=== PATIENT | female | born 1945 | race Caucasian/White ===

== ENCOUNTER 2016-11-04 05:22 | Inpatient (IN) | payer MEDICARE ==
[2016-11-04] MEDS: Lactated Ringers 1,000 ML IV SCH (06:36)
[2016-11-04] MEDS ORDERED: Povidone-Iodine 10% Soln 118.25 ML Bottle ONE (06:43)
[2016-11-04] MEDS ORDERED: Gentamicin 40 MG/ML 2 ML Vial ONE (06:43)
[2016-11-04] MEDS ORDERED: Clindamycin Phosphate 900 MG in Sodium Chloride 0.9% 100 ML IV ONE (07:15)
[2016-11-04] MEDS ORDERED: Propofol 200 MG/20 ML SDV ONE ×4 (07:17→09:49)
[2016-11-04] MEDS ORDERED: Midazolam 1 MG/ML 2 ML SDV ONE ×4 (07:18→09:06)
[2016-11-04] MEDS ORDERED: fentaNYL 100 MCG/2 ML SDV ONE ×3 (07:18→09:44)
[2016-11-04] MEDS ORDERED: Ondansetron 4 MG/2 ML SDV ONE (07:52)
[2016-11-04] MEDS ORDERED: Dexamethasone 4 MG/ML SDV ONE (07:52)
[2016-11-04] MEDS ORDERED: Ropivacaine 49.25 ML, Ketorolac 30 MG, EPINEPHrine 0.5 MG, cloNIDine 80 MCG, Sodium Chl... INJECT SCH ×5 (08:00)
[2016-11-04] MEDS: Tranexamic Acid 1,000 MG in Sodium Chloride 0.9% 50 ML IV SCH ×2 (08:01→10:31)
[2016-11-04] MEDS ORDERED: Lactated Ringers 1,000 ML ONE (08:46)
[2016-11-04] MEDS ORDERED: Ketorolac 60 MG/2 ML SDV ONE (09:46)
[2016-11-04] MEDS ORDERED: traMADol 50 MG Tab PO PRN (10:13)
[2016-11-04] MEDS ORDERED: Bisacodyl 5 MG Tab PO PRN (10:13)
[2016-11-04] MEDS ORDERED: Aluminum Hydroxide/Magnesium Hydroxide/Simethicone Susp 30 ML Cup PO PRN (10:13)
[2016-11-04] MEDS ORDERED: Zolpidem 5 MG Tab PO PRN (10:13)
[2016-11-04] MEDS ORDERED: Morphine 2 MG/ML Syringe IVPUSH PRN (10:13)
[2016-11-04] MEDS ORDERED: Docusate Sodium 100 MG Cap PO PRN (10:13)
[2016-11-04] MEDS ORDERED: diphenhydrAMINE 50 MG/ML SDV IVPUSH PRN (10:13)
[2016-11-04] MEDS ORDERED: Magnesium Hydroxide 400 MG/5 ML Susp 30 ML Cup PO PRN (10:13)
[2016-11-04] MEDS ORDERED: Ondansetron 4 MG/2 ML SDV IVPUSH PRN (10:13)
[2016-11-04] MEDS ORDERED: Ketorolac 30 MG/ML SDV IVPUSH PRN (10:13)
[2016-11-04] MEDS ORDERED: Naloxone 0.4 MG/ML SDV IVPUSH PRN (10:13)
[2016-11-04] MEDS ORDERED: Sennosides 8.6 MG Tab PO PRN (10:13)
[2016-11-04] MEDS ORDERED: HYDROmorphone 1 MG/ML Syringe IM ONE (10:45)
[2016-11-04] MEDS ORDERED: HYDROmorphone 1 MG/ML Syringe IVPUSH ONE (10:45)
[2016-11-04] MEDS ORDERED: hydrOXYzine HCl 50 MG/ML SDV IM ONE (10:53)
[2016-11-04] MEDS ORDERED: fentaNYL 100 MCG/2 ML SDV IVPUSH ONE (10:53)
[2016-11-04] MEDS ORDERED: ceFAZolin 2 GM in Premix Bag 1 BAG IV SCH (11:00)
--- NOTE | 2016-11-04 11:13 | OR ---
DATE OF PROCEDURE: 11/04/2016 PREOPERATIVE DIAGNOSIS: Right knee primary osteoarthritis. POSTOPERATIVE DIAGNOSIS: Right knee primary osteoarthritis. PROCEDURE: Right knee total knee arthroplasty. NETWORK OPERATIONS MANAGER: Jessica Stevens NP. ANESTHESIA: Conscious sedation plus spinal anesthesia. FLUID: Lactated Ringer solution. ESTIMATED BLOOD LOSS: 50 mL. COMPLICATIONS: None. SPECIMEN: None. DISPOSITION: Stable to PACU. TOURNIQUET TIME: 75 minutes. INSTRUMENTATION: Niecy Persona size 8 of 5-degree cemented tibia, size 10 femur, 38 mm poly patella, and 14 mm tibial insert. INDICATIONS: The patient is well known to me. She was seen in the clinic. We performed her left total knee arthroplasty a few months ago. She did quite well from this and was very compliant in her therapy, and she had very good range of motion. The patient's extension was limited, mainly due to posterior osteophyte. She had severe tricompartmental osteoarthritis with osteophytes in all compartments and was bone on bone in the medial compartment. Preoperative imaging confirmed the above-mentioned diagnosis. Risks and benefits of the procedure were explained to the patient, and informed consent was obtained. DETAILS OF PROCEDURE: The patient was seen preoperatively by myself and the Anesthesia staff in the preop holding area where the operative site was marked. She was brought to the operative suite by the Anesthesia staff where spinal anesthesia was administered as well as conscious sedation. A well-padded tourniquet was placed on the right thigh. A sterile Koch catheter was inserted. The right lower extremity was then prepped and draped in sterile manner. Time-out was called identifying the correct patient, the correct procedure, the correct site, and antibiotics had begun with appropriate period of time. The right lower extremity was exsanguinated. Tourniquet was raised to 300 mmHg for 75 minutes and let down after cementing was complete. A midline incision was made 4 fingerbreadths proximal to the patella down to the level of the inferior portion of the tibial tubercle. A medial parapatellar arthrotomy was then made. We then removed the infrapatellar fat pad and then performed a full synovectomy. I then everted the patella and flexed the knee. We removed any osteophytes using the rongeur and then using 2 cuts with the saw made a freehand cut. This measured 38 mm. We then put the knee back in extension and drilled 3 holes for the patellar insert and then inserted the patellar insert. After this had been completed, we then flexed the knee up and then protecting soft tissues with medial and lateral sharp Homans rongeured a small area in the notch, anterior to the notch and then reamed at a point about 1.5 cm anterior to the notch entering the intramedullary canal. We then used the intramedullary guide at 5 degree valgus, we pinned our guide in place, and then made our distal cut. We then removed the guide and then I had to extend the arthrotomy proximally just slightly in order to get enough clearance for my chamfer block. I used a posterior condylar guide measuring size 10 femur. I then drilled the holes for my chamfer block. I removed the guide and then placed my chamfer block. I then protected the medial collateral ligament with a zero retractor, lateral collateral ligament with sharp Hohmann, and the anterior tissues with rongeur and then made my chamfer cuts anterior posterior and chamfer. I then removed my guide. I then used a flat osteotome and removed any remaining bone from my cuts. I did spend quite a bit of time during this procedure, removing the osteophytes, which were prominent around the medial and lateral, anterior and distal femur as well as the medial tibial plateau. I then removed the anterior and posterior cruciate ligaments as well as well as what I could remove of the medial and lateral meniscus and then anteriorized the tibia using a blunt Hohmann, and again while protecting our soft tissues with sharp Homans medially and laterally, I placed an H block. I did adjust this once as I believe that I had it and too much internal rotation after making sure that it was in line with the tibial tubercle and the 2nd metatarsal. I then pinned this in place. We then reamed the proximal tibia and then tamped it. I then inserted my femoral trial, and using the guide and a reciprocating saw, I made my block cut. After the block cut had been made, we then inserted our trial components. After I inserted a 10 mmm, a part of the component fell on the floor. We then flashed this. I then used the next base plate smaller and then went up to 13, which I believe provided good extension. After this was done, I then removed all my components, copiously irrigated with saline, and then cemented my components in place. After the components had dried, I then removed the polyethylene trial, which had been left in full extension while drying. The tourniquet was let down after the cement had hardened. At that point, our tibial insert had been flashed. I then trialed a 14 tibia, which provided excellent stability in full extension as well as mid flexion stability with full extension and full range of motion from 0-135 degrees. I then removed that tibial component. We removed any excess cement with the osteotome and Gretel's. I then cauterized the posterior capsule, especially in the lateral side. I copiously irrigated it with saline again and then inserted my final tibial insert. This provided excellent range of motion again. We then irrigated with small amount of Betadine plus regular irrigation, and then Jessica Stevens in addition to assisting with retraction and then closed with two #5 Ethibond and 0 Vicryl [id number] in a watertight manner for the parapatellar arthrotomy followed by irrigation followed by 2-0 Vicryl subcutaneous sutures, followed by 2-0 Monocryl, Dermabond, and a zip line, followed by sterile dressing. The patient was stable throughout the procedure. She did very well. She was awake at the end of the procedure from conscious sedation, and then she was taken to the PACU in stable condition. Prosper Ricks DO /[id number]
--- NOTE | 2016-11-04 11:15 | CR ---
Postop right tka. Negative for post surgical purposes.
[2016-11-04] MEDS: Acetaminophen/oxyCODONE 325-5 MG Tab PO PRN ×3 (11:48→20:27)
[2016-11-04] MEDS: ceFAZolin 2 GM in Sodium Chloride 0.9% 50 ML IV SCH ×2 (14:10→22:48)
[2016-11-04] MEDS: Ketorolac 30 MG/ML SDV IVPUSH PRN (18:17)
[2016-11-04] MEDS ORDERED: Aspirin 325 MG Tab.EC PO SCH (21:00)
[2016-11-05] MEDS: Acetaminophen/oxyCODONE 325-5 MG Tab PO PRN ×5 (03:42→20:09)
[2016-11-05] MEDS: ceFAZolin 2 GM in Sodium Chloride 0.9% 50 ML IV SCH (05:38)
[2016-11-05] MEDS ORDERED: Sodium Chloride 0.9% 500 ML IV ONE (06:12)
[2016-11-05] MEDS: Cyanocobalamin (Vitamin B12) 1,000 MCG Tab PO SCH (08:08)
[2016-11-05] MEDS: Aspirin 325 MG Tab.EC PO SCH ×2 (08:08→20:11)
[2016-11-05] MEDS: Multivitamins with Iron/Calcium/Folic Acid/Minerals Tab PO SCH ×2 (08:08→20:11)
[2016-11-05] MEDS: Hydrochlorothiazide 25 MG Tab PO SCH (08:08)
[2016-11-05] MEDS: Calcium Carbonate/Vitamin D3 1500 MG-400 Units Tab PO SCH (08:08)
[2016-11-05] MEDS: Lactated Ringers 1,000 ML IV SCH (08:11)
[2016-11-05] MEDS ORDERED: Sodium Chloride 0.9% 10 ML Syringe FLUSH PRN (09:00)
--- NOTE | 2016-11-05 15:20 | PCM.PN ---
- General Info Date of Service: 11/05/16 Admission Dx/Problem (Free Text): Sabiha is a 71 year old female who who is status post op day 1 of a right knee replacement. She is doing well. She notes that she is having some drainage. She states that otherwise she is doing well. She denies any pain at this time. Functional Status: Reports: pain controlled, tolerating diet, ambulating, incentive spirometry - Patient Data Vitals - most recent: Last Vital Signs Temp 37.1 C 11/05/16 15:03 Pulse 79 11/05/16 15:03 Resp 16 11/05/16 15:03 BP 113/71 11/05/16 15:03 Pulse Ox 94 L 11/05/16 15:03 Weight - most recent: 320 lb I&O - last 24 hours: Intake & Output 11/05/16 11/05/16 11/05/16 06:59 14:59 22:59 Intake Total 650 1725 Output Total 200 300 Balance 450 1425 Lab Results last 24 hrs: Laboratory Results - last 24 hr 11/05/16 11/05/16 Range/Units 04:30 04:30 WBC 11.9 H (4.5-11.0) K/uL RBC 4.02 (3.30-5.50) M/uL Hgb 12.1 (12.0-15.0) g/dL Hct 37.7 (36.0-48.0) % MCV 94 (80-98) fL MCH 30 (27-31) pg MCHC 32 (32-36) % Plt Count 262 (150-400) K/uL Neut % (Auto) 77 H (36-66) % Lymph % (Auto) 9 L (24-44) % Hidalgo % (Auto) 12 H (2-6) % Eos % (Auto) 1 L (2-4) % Baso % (Auto) 0 (0-1) % Sodium 139 L (140-148) mmol/L Potassium 4.3 (3.6-5.2) mmol/L Chloride 103 (100-108) mmol/L Carbon Dioxide 29 (21-32) mmol/L Anion Gap 11.3 (5.0-14.0) mmol/L BUN 22 H (7-18) mg/dL Creatinine 1.2 H (0.6-1.0) mg/dL Est Cr Clr Drug Dosing 47.36 mL/min Estimated GFR (MDRD) 44 L (>60) Glucose 106 (74-106) mg/dL Calcium 8.2 L (8.5-10.1) mg/dL Total Bilirubin 0.8 (0.2-1.0) mg/dL AST 111 H D (15-37) U/L ALT 78 D (12-78) U/L Alkaline Phosphatase 91 (46-116) U/L Total Protein 6.2 L (6.4-8.2) g/dL Albumin 2.7 L (3.4-5.0) g/dL Globulin 3.5 (2.3-3.5) g/dL Albumin/Globulin Ratio 0.8 L (1.2-2.2) Med Orders - Current: Current Medications Al Hydroxide/Mg Hydroxide (Mag-Al Plus) 30 ml PO Q4H PRN PRN Reason: Constipation Aspirin (Ecotrin) 325 mg PO BID [facility] Last Admin: 11/05/16 08:08 Dose: 325 mg Bisacodyl (Dulcolax) 10 mg PO DAILY PRN PRN Reason: Constipation Calcium Carbonate (Caltrate 600+D 1500 Mg-400 Units) 1 tab PO DAILY@0800 [facility] Last Admin: 11/05/16 08:08 Dose: 1 tab Cyanocobalamin (Vitamin B12) 500 mcg PO DAILY [facility] Last Admin: 11/05/16 08:08 Dose: 500 mcg Diazepam (Valium) 5 mg IVPUSH Q6H PRN PRN Reason: Spasms Diphenhydramine HCl (Benadryl) 25 mg IVPUSH Q4H PRN PRN Reason: Itching Docusate Sodium (Colace) 100 mg PO BID PRN PRN Reason: Constipation Hydrochlorothiazide (Hydrochlorothiazide) 25 mg PO DAILY [facility] Last Admin: 11/05/16 08:08 Dose: 25 mg Lactated Ringer's (Ringers, Lactated) 1,000 mls @ 25 mls/hr IV ASDIRECTED [facility] Last Admin: 11/05/16 08:11 Dose: 25 mls/hr Ketorolac Tromethamine (Toradol) 30 mg IVPUSH Q8H PRN PRN Reason: Pain Stop: 11/09/16 10:13 Last Admin: 11/04/16 18:17 Dose: 30 mg Magnesium Hydroxide (Milk Of Magnesia) 30 ml PO BID PRN PRN Reason: Constipation Morphine Sulfate (Morphine) 2 mg IVPUSH Q2H PRN PRN Reason: Pain Multivitamins/Minerals (Thera M Plus) 1 tab PO BID [facility] Last Admin: 11/05/16 08:08 Dose: 1 tab Ondansetron HCl (Zofran) 8 mg IVPUSH Q4H PRN PRN Reason: Nausea/Vomiting Oxycodone/Acetaminophen (Percocet 325-5 Mg) 2 tab PO Q4H PRN PRN Reason: Pain Last Admin: 11/05/16 12:18 Dose: 2 tab Senna (Senna) 8.6 mg PO BID PRN PRN Reason: Constipation Sodium Chloride (Saline Flush) 10 ml FLUSH DAILY PRN PRN Reason: LINE MAINTENCE Tramadol HCl (Ultram) 100 mg PO Q6H PRN PRN Reason: Pain Last Admin: 11/04/16 13:34 Dose: 100 mg Zolpidem Tartrate (Ambien) 5 mg PO BEDTIME PRN PRN Reason: Sleep Discontinued Medications Aspirin (Ecotrin) 325 mg PO BID [facility] Ropivacaine 49.25 ml/Ketorolac Tromethamine 30 mg/Epinephrine HCl 0.5 mg/ Clonidine HCl 80 mcg/ Sodium Chloride 48.45 ml 0 ml INJECT ASDIRECTED [facility] Stop: 11/04/16 08:01 Last Admin: 11/04/16 08:02 Dose: 2 syringe Dexamethasone (Dexamethasone) Confirm Administered Dose 4 mg .ROUTE .STK-MED ONE Stop: 11/04/16 07:53 Fentanyl (Sublimaze) Confirm Administered Dose 100 mcg .ROUTE .STK-MED ONE Stop: 11/04/16 07:19 Fentanyl (Sublimaze) Confirm Administered Dose 100 mcg .ROUTE .STK-MED ONE Stop: 11/04/16 09:12 Fentanyl (Sublimaze) Confirm Administered Dose 100 mcg .ROUTE .STK-MED ONE Stop: 11/04/16 09:45 Fentanyl (Sublimaze) 100 mcg IVPUSH ONETIME ONE Stop: 11/04/16 10:54 Last Admin: 11/04/16 11:01 Dose: 100 mcg Gentamicin Sulfate (Gentamicin) Confirm Administered Dose 320 mg .ROUTE .STK- MED ONE Stop: 11/04/16 06:44 Last Admin: 11/04/16 08:26 Dose: 320 mg Hydromorphone HCl (Dilaudid) 1 mg IM ONETIME ONE Stop: 11/04/16 10:46 Last Admin: 11/04/16 10:40 Dose: 1 mg Hydromorphone HCl (Dilaudid) 1 mg IVPUSH ONETIME ONE Stop: 11/04/16 10:46 Last Admin: 11/05/16 07:51 Dose: Not Given Hydroxyzine HCl (Vistaril) 100 mg IM ONETIME ONE Stop: 11/04/16 10:54 Last Admin: 11/04/16 11:01 Dose: 100 mg Clindamycin Phosphate 900 mg/ (Sodium Chloride) 106 mls @ 200 mls/hr IV ONETIME ONE Stop: 11/04/16 07:46 Last Admin: 11/04/16 07:17 Dose: 200 mls/hr Tranexamic Acid 1,000 mg/ (Sodium Chloride) 60 mls @ 240 mls/hr IV Q3H MELINDA Stop: 11/04/16 10:59 Last Admin: 11/04/16 10:31 Dose: 240 mls/hr Lactated Ringer's (Ringers, Lactated) Confirm Administered Dose 1,000 mls @ as directed .ROUTE .STK-MED ONE Stop: 11/04/16 08:47 Cefazolin Sodium/Dextrose 2 gm (/ Premix) 50 mls @ 100 mls/hr IV Q8H MELINDA Stop: 11/05/16 03:29 Last Admin: 11/05/16 07:57 Dose: Not Given Cefazolin Sodium 2 gm/ Sodium (Chloride) 50 mls @ 100 mls/hr IV Q8HR MELINDA Stop: 11/05/16 06:29 Last Admin: 11/05/16 05:38 Dose: 100 mls/hr Sodium Chloride (Normal Saline) 500 mls @ 500 mls/hr IV .BOLUS ONE Stop: 11/05/16 07:11 Last Admin: 11/05/16 07:16 Dose: 500 mls/hr Ketorolac Tromethamine (Toradol) Confirm Administered Dose 60 mg .ROUTE .STK- MED ONE Stop: 11/04/16 09:47 Ketorolac Tromethamine (Toradol) 30 mg IVPUSH Q8H PRN PRN Reason: Pain Stop: 11/09/16 10:13 Lidocaine HCl (Xylocaine-Mpf 1%) Confirm Administered Dose 5 ml .ROUTE .STK-MED ONE Stop: 11/04/16 07:02 Last Admin: 11/05/16 07:50 Dose: Not Given Midazolam HCl (Versed 1 Mg/Ml) Confirm Administered Dose 2 mg .ROUTE .STK-MED ONE Stop: 11/04/16 07:19 Midazolam HCl (Versed 1 Mg/Ml) Confirm Administered Dose 2 mg .ROUTE .STK-MED ONE Stop: 11/04/16 07:49 Midazolam HCl (Versed 1 Mg/Ml) Confirm Administered Dose 2 mg .ROUTE .STK-MED ONE Stop: 11/04/16 07:50 Midazolam HCl (Versed 1 Mg/Ml) Confirm Administered Dose 2 mg .ROUTE .STK-MED ONE Stop: 11/04/16 09:07 Naloxone HCl (Narcan) 0.1 mg IVPUSH ONETIME PRN PRN Reason: Oversedation Stop: 11/05/16 10:14 Ondansetron HCl (Zofran) Confirm Administered Dose 4 mg .ROUTE .STK-MED ONE Stop: 11/04/16 07:53 Povidone Iodine (Betadine 10% Soln) Confirm Administered Dose 1 ml .ROUTE .STK- MED ONE Stop: 11/04/16 06:44 Last Admin: 11/04/16 08:26 Dose: 30 ml Propofol (Diprivan 20 Ml) Confirm Administered Dose 200 mg .ROUTE .STK-MED ONE Stop: 11/04/16 07:18 Propofol (Diprivan 20 Ml) Confirm Administered Dose 400 mg .ROUTE .STK-MED ONE Stop: 11/04/16 08:27 Propofol (Diprivan 20 Ml) Confirm Administered Dose 200 mg .ROUTE .STK-MED ONE Stop: 11/04/16 09:08 Propofol (Diprivan 20 Ml) Confirm Administered Dose 200 mg .ROUTE .STK-MED ONE Stop: 11/04/16 09:50 - Exam Extremities: normal pulses, no calf tenderness Peripheral Pulses: 2+: popliteal (L), popliteal (R), dorsalis pedis (L), dorsalis pedis (R) Skin: warm, dry, intact Wound/Incisions: healing well, drainage - Problem List & Annotations (1) Status post total right knee replacement SNOMED Code(s): 9128734752967 Code(s): Z96.651 - PRESENCE OF RIGHT ARTIFICIAL KNEE JOINT Status: Acute Current Visit: Yes - Problem List Review Problem List Initiated/Reviewed/Updated: Yes - My Orders Last 24 Hours: My Active Orders 11/05/16 08:00 Calcium Carbonate/Vitamin D3 [Caltrate 600+D 1500 MG-400 Units] 1 tab PO DAILY @0800 11/05/16 09:00 Aspirin [Ecotrin] 325 mg PO BID Cyanocobalamin (Vitamin B12) [Vitamin B12] 500 mcg PO DAILY Hydrochlorothiazide 25 mg PO DAILY Multivitamins w-Iron/Ca/FA/Min [Thera M Plus] 1 tab PO BID Sodium Chloride 0.9% [Saline Flush] 10 ml FLUSH DAILY PRN 11/06/16 05:15 CBC WITH AUTO DIFF [HEME] DAILY COMPREHENSIVE METABOLIC PN,CMP [CHEM] DAILY 11/07/16 05:15 CBC WITH AUTO DIFF [HEME] DAILY COMPREHENSIVE METABOLIC PN,CMP [CHEM] DAILY 11/08/16 05:15 CBC WITH AUTO DIFF [HEME] DAILY COMPREHENSIVE METABOLIC PN,CMP [CHEM] DAILY - Plan Plan:: We were notified earlier that the patient had had low output. We have given her a 500 mL bolus. She is at 300 mL output since then. It will saline lock her IV at this time. I will also DC her Koch continue strict I and O. At this time Sabiha is doing well. Powder continue with PT OT and pain management at this time. Will plan on possibly discharging her tomorrow if her drainage is under control. On her to continue to ambulate 3 times a day. On her medications to be changed or only. We will reassess in the morning so she is doing for her discharge. She was admitted with spinal notify me of any changes.
[2016-11-06] MEDS: Acetaminophen/oxyCODONE 325-5 MG Tab PO PRN ×3 (00:33→12:08)
[2016-11-06] MEDS: Ketorolac 30 MG/ML SDV IVPUSH PRN (00:36)
[2016-11-06 07:17] VITALS: BP 131/71
[2016-11-06] MEDS: Calcium Carbonate/Vitamin D3 1500 MG-400 Units Tab PO SCH (08:50)
[2016-11-06] MEDS: Cyanocobalamin (Vitamin B12) 1,000 MCG Tab PO SCH (08:50)
[2016-11-06] MEDS: Hydrochlorothiazide 25 MG Tab PO SCH (08:50)
[2016-11-06] MEDS: Aspirin 325 MG Tab.EC PO SCH (08:50)
[2016-11-06] MEDS: Multivitamins with Iron/Calcium/Folic Acid/Minerals Tab PO SCH (08:50)
--- NOTE | 2016-11-06 09:03 | PCM.DCSUM1 ---
Discharge Summary - Discharge Data Discharge Date: 11/06/16 Discharge Disposition: Home, Self-Care 01 Condition: Good - Discharge Diagnosis/Problem(s) (1) Status post total right knee replacement SNOMED Code(s): 4514359684281 ICD Code: Z96.651 - PRESENCE OF RIGHT ARTIFICIAL KNEE JOINT Status: Acute Current Visit: Yes - Patient Summary/Data Consults: Consultations 11/04/16 10:13 OT Evaluation and Treatment [CONS] Routine Please Evaluate and Treat. OT Reason for Consult: Strengthening This query below is only for informational purposes and is not editable. PT Evaluation and Treatment [CONS] Routine Please Evaluate and Treat. PT Reason for Consult: Strengthening This query below is only for informational purposes and is not editable. - Patient Instructions Diet: Usual Diet as Tolerated Activity: Apply Ice, As Tolerated, Elevate Extremity Driving: May Drive Today Showering/Bathing: May Shower Wound/Incision Care: Keep Operative Site/Wound Site Clean and Dry, Change Dressing Daily Notify Provider of: Fever, Increased Pain, Swelling and Redness - Discharge Plan Prescriptions/Med Rec: Aspirin [Ecotrin] 325 mg PO BID #60 tab.ec Docusate Sodium [Colace] 100 mg PO BID PRN #30 cap PRN Reason: Constipation traMADol [Ultram] 100 mg PO Q6H PRN #60 tablet PRN Reason: Pain Home Medications: Home Meds Multivitamin [Multi-Vitamin Daily] 1 each PO BID 09/28/13 [History] Hydrochlorothiazide 25 mg PO DAILY #10 tab 02/24/14 [Rx] Cyanocobalamin (Vitamin B12) [Vitamin B12] 500 mcg PO DAILY 04/18/16 [History] Calcium Carbonate/Vitamin D3 [Calcium 600 + Vit D 400 Softgl] 1 tab PO DAILY 12/02 [History] Aspirin [Ecotrin] 325 mg PO BID #60 tab.ec 11/06/16 [Rx] Docusate Sodium [Colace] 100 mg PO BID PRN #30 cap 11/06/16 [Rx] traMADol [Ultram] 100 mg PO Q6H PRN #60 tablet 11/06/16 [Rx] Referrals: Jessica Stevens NP [Nurse Practitioner] - (She will need a follow up appointment in 2 weeks. ) Jerman Rivas MD [Primary Care Provider] - (I want her to follow up with Dr. Rivas in 1 week to recheck her BUN and cre. ) - Discharge Summary/Plan Comment DC Time >30 min.: No Discharge Summary/Plan Comment: Sabiha is a 71 year old female who is POD 2 of a right total knee replacement. She is doing well. She is ambulating with a walker. She is tolerating her diet and pain is controlled with oral pain medication. She has minimal drainage at this time. LOWER EXTREMITY Musculoskeletal Physical Examination Constitutional: Vital signs including height and weight were reviewed and documented on the patient's chart. General appearance demonstrates normal development and body habitus. HEENT: Normocephalic, atraumatic. Neurological: The patient is alert and oriented to person, place, and time. Mood and affect are appropriate. Gait and station are normal. Intact sensation is noted. Deep tendon reflexes are equal. Clonus negative. [place]' s negative. Coordination and balance are normal. Right lower extremity: Inspection/palpation: Normal symmetry and appearance without tenderness. Stability: Stable through slight range of motion. Strength : Normal muscle strength and tone. Skin: Normal skin tone without rashes or lesions. Dressing is clean, dry, and intact. Left lower extremity: Inspection/palpation: Normal symmetry and appearance without tenderness. Range of motion: Full range of motion without pain. Stability: Stable through range of motion. Strength: Normal muscle strength and tone. Skin: Normal skin tone without rashes or lesions. Plan: She will be discharged today. She is to follow up in 2 weeks with myself. I want her to follow up with Dr. Rivas in 1 week for a recheck of her kidney function. She is to follow up with PT upon discharge. I am sending her home with jaci moss asa. - Patient Data Vitals - Most Recent: Last Vital Signs Temp 36.6 C 11/06/16 07:00 Pulse 85 11/06/16 07:00 Resp 16 11/06/16 07:00 BP 131/71 11/06/16 07:00 Pulse Ox 97 11/06/16 07:00 Weight - Most Recent: 320 lb I&O - Last 24 hours: Intake & Output 11/05/16 11/06/16 11/06/16 22:59 06:59 14:59 Intake Total 1840 Output Total 275 400 400 Balance 1565 -400 -400 Lab Results - Last 24 hrs: Laboratory Results - last 24 hr 11/06/16 11/06/16 Range/Units 05:15 05:15 WBC 7.4 (4.5-11.0) K/uL RBC 3.65 (3.30-5.50) M/uL Hgb 11.0 L (12.0-15.0) g/dL Hct 33.9 L (36.0-48.0) % MCV 93 (80-98) fL MCH 30 (27-31) pg MCHC 32 (32-36) % Plt Count 242 (150-400) K/uL Neut % (Auto) 58 (36-66) % Lymph % (Auto) 20 L (24-44) % [place] % (Auto) 17 H (2-6) % Eos % (Auto) 5 H (2-4) % Baso % (Auto) 1 (0-1) % Sodium 137 L (140-148) mmol/L Potassium 3.8 (3.6-5.2) mmol/L Chloride 103 (100-108) mmol/L Carbon Dioxide 28 (21-32) mmol/L Anion Gap 9.8 (5.0-14.0) mmol/L BUN 24 H (7-18) mg/dL Creatinine 1.2 H (0.6-1.0) mg/dL Est Cr Clr Drug Dosing 47.36 mL/min Estimated GFR (MDRD) 44 L (>60) Glucose 103 (74-106) mg/dL Calcium 8.0 L (8.5-10.1) mg/dL Total Bilirubin 0.6 (0.2-1.0) mg/dL AST 89 H (15-37) U/L ALT 78 (12-78) U/L Alkaline Phosphatase 96 (46-116) U/L Total Protein 5.9 L (6.4-8.2) g/dL Albumin 2.5 L (3.4-5.0) g/dL Globulin 3.4 (2.3-3.5) g/dL Albumin/Globulin Ratio 0.7 L (1.2-2.2) Med Orders - Current: Current Medications Al Hydroxide/Mg Hydroxide (Mag-Al Plus) 30 ml PO Q4H PRN PRN Reason: Constipation Aspirin (Ecotrin) 325 mg PO BID MELINDA Last Admin: 11/06/16 08:50 Dose: 325 mg Bisacodyl (Dulcolax) 10 mg PO DAILY PRN PRN Reason: Constipation Calcium Carbonate (Caltrate 600+D 1500 Mg-400 Units) 1 tab PO DAILY@0800 [facility] Last Admin: 11/06/16 08:50 Dose: 1 tab Cyanocobalamin (Vitamin B12) 500 mcg PO DAILY [facility] Last Admin: 11/06/16 08:50 Dose: 500 mcg Diazepam (Valium) 5 mg IVPUSH Q6H PRN PRN Reason: Spasms Diphenhydramine HCl (Benadryl) 25 mg IVPUSH Q4H PRN PRN Reason: Itching Docusate Sodium (Colace) 100 mg PO BID PRN PRN Reason: Constipation Hydrochlorothiazide (Hydrochlorothiazide) 25 mg PO DAILY [facility] Last Admin: 11/06/16 08:50 Dose: 25 mg Lactated Ringer's (Ringers, Lactated) 1,000 mls @ 25 mls/hr IV ASDIRECTED [facility] Last Admin: 11/05/16 08:11 Dose: 25 mls/hr Ketorolac Tromethamine (Toradol) 30 mg IVPUSH Q8H PRN PRN Reason: Pain Stop: 11/09/16 10:13 Last Admin: 11/06/16 00:36 Dose: 30 mg Magnesium Hydroxide (Milk Of Magnesia) 30 ml PO BID PRN PRN Reason: Constipation Morphine Sulfate (Morphine) 2 mg IVPUSH Q2H PRN PRN Reason: Pain Multivitamins/Minerals (Thera M Plus) 1 tab PO BID [facility] Last Admin: 11/06/16 08:50 Dose: 1 tab Ondansetron HCl (Zofran) 8 mg IVPUSH Q4H PRN PRN Reason: Nausea/Vomiting Oxycodone/Acetaminophen (Percocet 325-5 Mg) 2 tab PO Q4H PRN PRN Reason: Pain Last Admin: 11/06/16 07:31 Dose: 2 tab Senna (Senna) 8.6 mg PO BID PRN PRN Reason: Constipation Sodium Chloride (Saline Flush) 10 ml FLUSH DAILY PRN PRN Reason: LINE MAINTENCE Tramadol HCl (Ultram) 100 mg PO Q6H PRN PRN Reason: Pain Last Admin: 11/04/16 13:34 Dose: 100 mg Zolpidem Tartrate (Ambien) 5 mg PO BEDTIME PRN PRN Reason: Sleep Discontinued Medications Aspirin (Ecotrin) 325 mg PO BID [facility] Ropivacaine 49.25 ml/Ketorolac Tromethamine 30 mg/Epinephrine HCl 0.5 mg/ Clonidine HCl 80 mcg/ Sodium Chloride 48.45 ml 0 ml INJECT ASDIRECTED [facility] Stop: 11/04/16 08:01 Last Admin: 11/04/16 08:02 Dose: 2 syringe Dexamethasone (Dexamethasone) Confirm Administered Dose 4 mg .ROUTE .STK-MED ONE Stop: 11/04/16 07:53 Fentanyl (Sublimaze) Confirm Administered Dose 100 mcg .ROUTE .STK-MED ONE Stop: 11/04/16 07:19 Fentanyl (Sublimaze) Confirm Administered Dose 100 mcg .ROUTE .STK-MED ONE Stop: 11/04/16 09:12 Fentanyl (Sublimaze) Confirm Administered Dose 100 mcg .ROUTE .STK-MED ONE Stop: 11/04/16 09:45 Fentanyl (Sublimaze) 100 mcg IVPUSH ONETIME ONE Stop: 11/04/16 10:54 Last Admin: 11/04/16 11:01 Dose: 100 mcg Gentamicin Sulfate (Gentamicin) Confirm Administered Dose 320 mg .ROUTE .STK- MED ONE Stop: 11/04/16 06:44 Last Admin: 11/04/16 08:26 Dose: 320 mg Hydromorphone HCl (Dilaudid) 1 mg IM ONETIME ONE Stop: 11/04/16 10:46 Last Admin: 11/04/16 10:40 Dose: 1 mg Hydromorphone HCl (Dilaudid) 1 mg IVPUSH ONETIME ONE Stop: 11/04/16 10:46 Last Admin: 11/05/16 07:51 Dose: Not Given Hydroxyzine HCl (Vistaril) 100 mg IM ONETIME ONE Stop: 11/04/16 10:54 Last Admin: 11/04/16 11:01 Dose: 100 mg Clindamycin Phosphate 900 mg/ (Sodium Chloride) 106 mls @ 200 mls/hr IV ONETIME ONE Stop: 11/04/16 07:46 Last Admin: 11/04/16 07:17 Dose: 200 mls/hr Tranexamic Acid 1,000 mg/ (Sodium Chloride) 60 mls @ 240 mls/hr IV Q3H [facility] Stop: 11/04/16 10:59 Last Admin: 11/04/16 10:31 Dose: 240 mls/hr Lactated Ringer's (Ringers, Lactated) Confirm Administered Dose 1,000 mls @ as directed .ROUTE .STK-MED ONE Stop: 11/04/16 08:47 Cefazolin Sodium/Dextrose 2 gm (/ Premix) 50 mls @ 100 mls/hr IV Q8H [facility] Stop: 11/05/16 03:29 Last Admin: 11/05/16 07:57 Dose: Not Given Cefazolin Sodium 2 gm/ Sodium (Chloride) 50 mls @ 100 mls/hr IV Q8HR [facility] Stop: 11/05/16 06:29 Last Admin: 11/05/16 05:38 Dose: 100 mls/hr Sodium Chloride (Normal Saline) 500 mls @ 500 mls/hr IV .BOLUS ONE Stop: 11/05/16 07:11 Last Admin: 11/05/16 07:16 Dose: 500 mls/hr Ketorolac Tromethamine (Toradol) Confirm Administered Dose 60 mg .ROUTE .STK- MED ONE Stop: 11/04/16 09:47 Ketorolac Tromethamine (Toradol) 30 mg IVPUSH Q8H PRN PRN Reason: Pain Stop: 11/09/16 10:13 Lidocaine HCl (Xylocaine-Mpf 1%) Confirm Administered Dose 5 ml .ROUTE .STK-MED ONE Stop: 11/04/16 07:02 Last Admin: 11/05/16 07:50 Dose: Not Given Midazolam HCl (Versed 1 Mg/Ml) Confirm Administered Dose 2 mg .ROUTE .STK-MED ONE Stop: 11/04/16 07:19 Midazolam HCl (Versed 1 Mg/Ml) Confirm Administered Dose 2 mg .ROUTE .STK-MED ONE Stop: 11/04/16 07:49 Midazolam HCl (Versed 1 Mg/Ml) Confirm Administered Dose 2 mg .ROUTE .STK-MED ONE Stop: 11/04/16 07:50 Midazolam HCl (Versed 1 Mg/Ml) Confirm Administered Dose 2 mg .ROUTE .STK-MED ONE Stop: 11/04/16 09:07 Naloxone HCl (Narcan) 0.1 mg IVPUSH ONETIME PRN PRN Reason: Oversedation Stop: 11/05/16 10:14 Ondansetron HCl (Zofran) Confirm Administered Dose 4 mg .ROUTE .STK-MED ONE Stop: 11/04/16 07:53 Povidone Iodine (Betadine 10% Soln) Confirm Administered Dose 1 ml .ROUTE .STK- MED ONE Stop: 11/04/16 06:44 Last Admin: 11/04/16 08:26 Dose: 30 ml Propofol (Diprivan 20 Ml) Confirm Administered Dose 200 mg .ROUTE .STK-MED ONE Stop: 11/04/16 07:18 Propofol (Diprivan 20 Ml) Confirm Administered Dose 400 mg .ROUTE .STK-MED ONE Stop: 11/04/16 08:27 Propofol (Diprivan 20 Ml) Confirm Administered Dose 200 mg .ROUTE .STK-MED ONE Stop: 11/04/16 09:08 Propofol (Diprivan 20 Ml) Confirm Administered Dose 200 mg .ROUTE .STK-MED ONE Stop: 11/04/16 09:50 *Q Meaningful Use (DIS) - VTE *Q VTE Criteria *Q: - Stroke *Q Stroke Criteria *Q: - AMI *Q AMI Criteria *Q:
== END 2016-11-06 14:55 | disposition home or self-care (01) | DRG 470 ==
LOC: JP.SDS 05:22 → JP.MS 05:22 → EDSTATUS 07:30 → JP.MS 11:30
PROVIDERS: ADMIT Orthopaedic Surgery; ATTEND Orthopaedic Surgery
PROC: 0SRC0J9 Replacement of Right Knee Joint with Synthetic Substitute, Cemented, Open Approach (ICD-10-PCS; principal; 2016-11-04)
DX: M17.11 Unilateral primary osteoarthritis, right knee (principal); Z68.42 Body mass index [BMI] 45.0-49.9, adult; G47.33 Obstructive sleep apnea (adult) (pediatric); E66.01 Morbid (severe) obesity due to excess calories; N39.3 Stress incontinence (female) (male); Z96.652 Presence of left artificial knee joint; Z79.82 Long term (current) use of aspirin
CPT/HCPCS: 36415; 73560-26-RT; 73560-RT; 80053; 85025; 86850; 86900; 86901; 94762; 97110-GP; 97162-GP; 97165-GO; 97530-GP; 97535-GP; A9270-GY; C1713; C1776; J0690; J1100; J1170; J1580; J1885; J2250; J2405; J2704; J2795; J3010; J3410; J7030; J7040; J7050; J7120; S0077

== ENCOUNTER 2017-01-05 10:45 | Inpatient (IN) | payer MEDICARE ==
[2017-01-05] MEDS ORDERED: fentaNYL 250 MCG/5 ML SDV ONE ×2 (11:26→14:45)
[2017-01-05] MEDS ORDERED: Rocuronium 50 MG/5 ML Vial ONE ×2 (11:29→15:10)
[2017-01-05] MEDS ORDERED: Propofol 200 MG/20 ML SDV ONE (11:29)
[2017-01-05] MEDS ORDERED: Neostigmine Methylsulfate 1 MG/ML 5 ML Syringe ONE (11:29)
[2017-01-05] MEDS ORDERED: Succinylcholine/Normal Saline 200 MG/10 ML Syringe ONE (11:29)
[2017-01-05] MEDS ORDERED: Dextrose 5%-Lactated Ringers 1,000 ML IV SCH ×2 (12:00→17:15)
[2017-01-05] MEDS ORDERED: HYDROmorphone/Normal Saline 15 MG/30 ML PCA IV PRN (12:33)
[2017-01-05] MEDS ORDERED: Naloxone 0.4 MG/ML SDV IVPUSH PRN (12:33)
[2017-01-05] MEDS: cefOXitin 2 GM in Sodium Chloride 0.9% 50 ML IV ONE ×2 (13:33→17:17)
[2017-01-05] MEDS: Bupivacaine 0.5%/EPINEPHrine 1:200,000 50 ML MDV ONE ×2 (14:45→15:15)
[2017-01-05] MEDS ORDERED: Dexamethasone 4 MG/ML SDV ONE (15:11)
[2017-01-05] MEDS ORDERED: Ondansetron 4 MG/2 ML SDV ONE (15:11)
[2017-01-05] MEDS ORDERED: Ondansetron 4 MG/2 ML SDV IVPUSH PRN (17:13)
[2017-01-06] MEDS: Acetaminophen/HYDROcodone 325-5 MG Tab PO PRN ×2 (02:57→07:40)
[2017-01-06 08:25] VITALS: BP 144/86
[2017-01-06] MEDS ORDERED: Hydrochlorothiazide 25 MG Tab PO SCH (09:00)
[2017-01-06] MEDS ORDERED: Aspirin 81 MG Tab.EC PO SCH (09:00)
--- NOTE | 2017-01-07 08:33 | DISCH ---
FINAL DIAGNOSIS: Peritoneal carcinomatosis with unknown primary. SECONDARY DIAGNOSES: 1. History of obesity. 2. History of tubulovillous adenoma of colon. 3. Obstructive sleep apnea. 4. Osteoarthritis. OPERATIVE PROCEDURE: This was done on 01/05/2017; diagnostic laparoscopy with: 1. Collection of peritoneal fluid for cytology. 2. Biopsies of sigmoid colon appendix epiploica. 3. Biopsies of a portion of omentum. 4. Biopsies of peritoneum and left-sided pelvic inlet. HOSPITAL COURSE: This is a 71-year-old female presenting with somewhat nebulous abdominal pain. A CT was obtained late last week which showed some mesenteric lymphadenopathy as well as some thickening of the omentum. There is no obvious primary site identified on the CT scan. The patient underwent diagnostic laparoscopy. The patient did confirm peritoneal carcinomatosis with caking of the omentum as well as the implants in the area such as appendix epiploica as well as the peritoneum. The carcinomatosis primarily within the infracolic abdomen and pelvis, and again no primary site could be seen. The right ovary could be identified. The left ovary was covered by the adhesions related to the colon and probably some fixation of tumor within the pelvis. The patient had a CEA, CA 19-9, CA 125 ordered and those are pending. The plan at this point will be to discharge the patient home. She will be following up with Elciia Boyd next week. The plan will be to have the tumor workup to see if we can give her some insight in terms of the primary site and then proceed with further workup from that point forward. She will be scheduled to see in addition to Elicia next Thursday and to see Italia Kahn PA-C of Medical Oncology [facility] on 01/14/2017. Hopefully, this ends up being a peritoneal carcinomatosis related to gynecologic disease or primary peritoneal carcinoma, which would be amenable to a debulking procedure, otherwise were probably looking at strictly using chemotherapy. These findings were reviewed with the patient and she seems to understand the game plan. The patient will be sent on home medications as usual along with Kendrick 5/325 one to two tabs q.4 hours p.r.n. pain, #40.
--- NOTE | 2017-01-07 13:50 | OR ---
DATE OF PROCEDURE: 01/05/2017 PREOPERATIVE DIAGNOSIS: Mesenteric lymphadenopathy and omental implants suggestive of intraabdominal malignancy. POSTOPERATIVE DIAGNOSIS: Peritoneal carcinomatosis with unknown primary. OPERATIVE PROCEDURES: 1. Diagnostic laparoscopy with:. a. Collection of washings of pelvic peritoneal fluid for cytology (26514). 2. Biopsies of:. a. Sigmoid colon, appendix epiploica. b. Biopsies of portion of omentum. c. Biopsies of peritoneum at left side of pelvic inlet (14016). ANESTHESIA: General. MILK ROUTE SUPERVISOR: Elicia Boyd PA-C and JORGE Woods. INDICATION FOR PROCEDURE: This is a 71-year-old, originally presenting with some increasing abdominal discomfort. A CT scan was obtained per Dr. Rivas, which showed some mesenteric lymphadenopathy along with a picture suggestive of omental caking by the tumor. No obvious primary site was seen. Specifically, there is nothing evident in the GI tract at pancreas, and nothing enlarged or abnormal within the pelvis. The plan is to proceed with a diagnostic laparoscopy, laparotomy if necessary with biopsies and resections as indicated. Potential risks including bleeding, infection, injury to the underlying viscera, possible misdiagnosis, and such were reviewed along with remote possibility of cardiopulmonary, supra hemorrhagic complications leading to were discussed, and the patient wishes to proceed. DETAILS OF PROCEDURE: The patient was taken to the operating room and after general endotracheal anesthesia was induced, was placed in a lithotomy position. Koch catheter was inserted and the abdomen prepped and draped. In the left lower quadrant, a transverse incision was made. The peritoneal cavity entered under direct vision with an Optiview trocar between 15 mmHg pressure of CO2. Laparoscope was then reinserted. No underlying trocar insertion site injuries were seen. Following this sequentially, two additional trocars were placed on the left side of the abdomen. Findings included quite extensive adhesions between the small and large bowel and omentum and the anterior abdominal wall and the previous midline incisional areas. This limited exposure of the abdomen. However, there was obvious peritoneal carcinomatosis; this was very minimal above the transverse colon but below the transverse colon was quite extensive. There was a large amount of omental caking present as well as involvement of structures such as appendix epiploica, the sigmoid colon, and the peritoneal sidewall, particularly on the left side of the pelvic inlet. The upper abdomen to the extent examined, showed no evidence of liver metastases. The esophagogastric junction was not able to be visualized, there was some degree of hiatal hernia, appeared to be somewhat fixed to that area, but the visualized remainder of the stomach was unremarkable. The small bowel was able to be limited to an extent due to the extensive adhesions, which were felt not to be appropriate to be taken down in the setting, roughly half of the colon could be examined, and there were no obvious malignancies seen, although the colon proximal to the mid transverse colon, the area of the splenic flexure, and a portion of the descending colon and then the lower portions of rectum were not examined. The mesenteric lymph nodes were minimally visible due to the small bowel adhesions. The right ovary could be visualized and that appeared to be normal. The left ovary appeared to be encased by some adhesions underlying the sigmoid colon and could not be visualized. There was some small amount of pelvic peritoneal fluid present. This was evacuated, sent for cytologic evaluation. At that point what appeared to be very adequate biopsies for workup were obtained using Harmonic scalpel. Some tumor involving the appendix epiploica and the sigmoid colon was removed. Following this, a large portion of the omentum with caking was also removed, and then finally a strip of peritoneum, the left side of the pelvic inlet containing peritoneal nodules were removed as well. These were all brought out through a specimen containers in the middle of the three trocars, this being noted in the event that at some point, it is felt that the trocar sites should be reexcised. At this point, no further problems were noted. It was felt at this point rather than proceed with a more formal open exploration, it would be best to have this tumor worked up to help identify the primary site. Hopefully this would end up being suggestive of gynecologic malignancy in which case a debulking procedure would be appropriate and at least for a period of time ficacous. However if a nongynecologic malignancy is identified, this probably would not be the case appropriate to proceed with a full laparotomy unless specific complications such as the GI tract obstruction occurs. The patient was taken to the recovery room in satisfactory condition. Physician graduate research assistant, Elicia Boyd, played an essential role in assisting in this case, helping to position the patient, retracting structures as needed, as well as cutting sutures and suturing when indicated. Her presence improved patient safety and decreased operative time. Jorgito Ricks MD /[id number]
== END 2017-01-06 09:40 | disposition home or self-care (01) | DRG 357 ==
LOC: EDSTATUS 10:45 → JP.SDS 11:20 → JP.SDSSCHI 11:20 → UNDOADMIN 15:45 → JP.MS 15:45
PROVIDERS: ADMIT Surgery; ATTEND Surgery
PROC: 0W9G4ZX Drainage of Peritoneal Cavity, Percutaneous Endoscopic Approach, Diagnostic (ICD-10-PCS; principal; 2017-01-05)
PROC: 0DBN4ZX Excision of Sigmoid Colon, Percutaneous Endoscopic Approach, Diagnostic (ICD-10-PCS; 2017-01-05)
PROC: 0DBT4ZX (ICD-10-PCS; 2017-01-05)
PROC: 0DBW4ZX Excision of Peritoneum, Percutaneous Endoscopic Approach, Diagnostic (ICD-10-PCS; 2017-01-05)
DX: C78.6 Secondary malignant neoplasm of retroperitoneum and peritoneum (principal); C78.5 Secondary malignant neoplasm of large intestine and rectum; Z68.42 Body mass index [BMI] 45.0-49.9, adult; E66.01 Morbid (severe) obesity due to excess calories; Z96.652 Presence of left artificial knee joint; Z79.82 Long term (current) use of aspirin; G47.33 Obstructive sleep apnea (adult) (pediatric); R59.1 Generalized enlarged lymph nodes
CPT/HCPCS: 36415; 82378; 83735; 84100; 86301; 86304; 88112; 88305; 88341; 88342; 88360; 94762; A9270-GY; J0694; J1100; J1170; J2405; J2704; J3010; J7042; J7050

== ENCOUNTER → 2017-07-31 | Day surgery (SDC) | payer MEDICARE ==
[~2017-07-31] MED LIST: Midazolam 1 MG/ML 2 ML SDV ONE; Propofol 200 MG/20 ML SDV ONE; Sodium Chloride 0.9% 1,000 ML IV SCH; fentaNYL 100 MCG/2 ML SDV ONE
[2017-07-31 09:33] VITALS: BP 173/96
--- NOTE | 2017-08-03 08:14 | OR ---
DATE OF PROCEDURE: 07/31/2017 PROCEDURE: Colonoscopy. FINDINGS: Normal colonoscopy (no masses, polyps, or bleeding abnormality, anastomosis shows no abnormality). COMPLICATIONS: None. JEWEL BEARING BROACHER: None. PREOPERATIVE DIAGNOSIS: history of colon resection, concern for malignancy POSTOPERATIVE DIAGNOSIS: history of colon resection, concern for malignancy RISKS: Risks, benefits, alternatives, and limitations including, but not limited to infection, bleeding, and perforation were explained to the patient, who wished to proceed. PROCEDURE IN DETAIL: The patient was placed in left lateral decubitus position. The digital rectal exam was performed without abnormality. The scope was introduced and was advanced atraumatically to the small bowel anastomosis. There was no evidence of old or new blood. No diverticula, no masses, and no colitis. The scope was then readvanced into the transverse colon and inspected second time. No abnormalities on retroflex. The patient tolerated the procedure well. Kevin Allan MD /[id number]
== END ==
LOC: JP.SDS 06:17
PROVIDERS: ATTEND Surgery
DX: Z12.11 Encounter for screening for malignant neoplasm of colon (principal); F41.9 Anxiety disorder, unspecified; F32.9 Major depressive disorder, single episode, unspecified; G47.33 Obstructive sleep apnea (adult) (pediatric); E66.01 Morbid (severe) obesity due to excess calories; Z88.8 Allergy status to other drugs, medicaments and biological substances; Z85.038 Personal history of other malignant neoplasm of large intestine; Z91.09 Other allergy status, other than to drugs and biological substances
CPT/HCPCS: C1751; G0105; J1642; J2250; J2704; J3010; J7040; J7030

== ENCOUNTER 2018-08-11 18:43 | Emergency (ER) | payer MEDICARE ==
[2018-08-11] MEDS ORDERED: Ondansetron 4 MG/2 ML SDV IVPUSH ONE ×2 (19:34→23:06)
[2018-08-11] MEDS ORDERED: Sodium Chloride 0.9% 10 ML Syringe FLUSH PRN (19:34)
--- NOTE | 2018-08-11 19:56 | EDM.PDOC ---
ED HPI GENERAL MEDICAL PROBLEM - General Chief Complaint: General Stated Complaint: MED[facility] Time Seen by Provider: 08/11/18 19:15 Source of Information: Reports: Patient, Family () History Limitations: Reports: No Limitations - History of Present Illness INITIAL COMMENTS - FREE TEXT/NARRATIVE: Shortness of breath, abdominal pain abdominal pain and weakness: This is a 72- year-old female present to ER by ambulance, reports today having increased abdominal pain, increased shortness of breath, and profound weakness. Her is at her bedside reports she has been very weak for the past few days unable to get out of bed today, and he is unable to care for her. She reports needs to be in the hospital. She was discharged on 07/17/2018 from [facility], she reports had a heart attack on 07/07/2018, was in the hospital for 10 days. had an angio which showed no blockage, was treated with medication. . 2 weeks ago,reports had 2 paracentesis and 1 thoracentesis for excessive fluid in lungs and abdomen. She wears a Life Vest for severe CHF. Having trouble with high INR , last dose of coumadin was 7 days ago. She was diagnosed with ovarian cancer on the March 05, 2017, complete hysterectomy done on July 2017. She underwent chemotherapy completed, restarted chemotherapy on July 02, 2018 her last chemotherapy was 1 week ago. This has left her very weak. Scheduled for chemotherapy today but canceled to not feeling well. Reports last bowel movement was 7 days. 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) (has tried Miralax, Senna.) abd Pain Score (Numeric/FACES): 4 - Related Data Allergies Allergy/AdvReac Type Severity Reaction Status Date / Time acetaminophen Allergy Other Verified 08/11/18 19:09 [From Darvocet-N] adhesive tape Allergy Rash Verified 08/11/18 19:09 propoxyphene Allergy Other Verified 08/11/18 19:09 [From Darvocet-N] propoxyphene HCl Allergy Hives Verified 08/11/18 19:09 [From Darvon Compound-65] Home Meds: Home Meds Warfarin [Coumadin] 2.5 mg PO MOWEFRSA 06/17/18 [History] Warfarin [Coumadin] 5 mg PO SUTUTH 06/17/18 [History] Bumetanide 0.5 mg PO BID 07/27/18 [History] Prochlorperazine Maleate [Compazine] 10 mg PO Q6H PRN 07/27/18 [History] atorvaSTATin Calcium [Lipitor] 40 mg PO DAILY 07/27/18 [History] Metoprolol Succinate [Toprol XL] 12.5 mg PO DAILY 08/11/18 [History] Past Medical History HEENT History: Reports: Cataract, Impaired Vision Other HEENT History: wears glasses Cardiovascular History: Reports: Arrhythmia, Heart Failure, Hypertension, SOB on Exertion, Syncope, Other (See Below) Other Cardiovascular History: has a life vest Respiratory History: Reports: Sleep Apnea Gastrointestinal History: Reports: Cholelithiasis, Colon Polyp Genitourinary History: Reports: Chronic Renal Insuffiency, Renal Disease, UTI, Recurrent, Other (See Below) Other Genitourinary History: CKD III 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: , Spontaneous Musculoskeletal History: Reports: Fracture, Osteoarthritis Neurological History: Reports: Vertigo Psychiatric History: Reports: Anxiety, Depression, Panic Attack Endocrine/Metabolic History: Reports: Obesity/BMI 30+ Hematologic History: Reports: Anticoagulation Therapy, B12 Deficiency, Blood Transfusion(s) Immunologic History: Reports: None Oncologic (Cancer) History: Reports: Ovarian Other Oncologic History: MELANOMA REMOVED ON BACK Peritoneal CA 2017 Dermatologic History: Reports: Melanoma, Other (See Below) Other Dermatologic History: melanoma 1992 - Infectious Disease History Infectious Disease History: Reports: Chicken Pox, Measles - Past Surgical History Head Surgeries/Procedures: Reports: None HEENT Surgical History: Reports: Adenoidectomy, Cataract Surgery, Tonsillectomy Cardiovascular Surgical History: Reports: None Respiratory Surgical History: Reports: None GI Surgical History: Reports: Appendectomy, Cholecystectomy, Colonoscopy, Polypectomy, Other (See Below) Other GI Surgeries/Procedures: BOWEL RESECTION Female Surgical History: Reports: Section Endocrine Surgical History: Reports: None Neurological Surgical History: Reports: None Musculoskeletal Surgical History: Reports: Knee Replacement Other Musculoskeletal Surgeries/Procedures:: bilateral knee replacement, pins in right ankle Oncologic Surgical History: Reports: None Dermatological Surgical History: Reports: Skin Biopsy Social & Family History - Family History Family Medical History: Noncontributory HEENT: Reports: Cataract Cardiac: Reports: Heart Failure, [place] Musculoskeletal: Reports: Arthritis Neurological: Reports: CVA - Tobacco Use Smoking Status *Q: Never Smoker - Caffeine Use Caffeine Use: Reports: Coffee - Recreational Drug Use Recreational Drug Use: No - Living Situation & Occupation Living situation: Reports: Occupation: Disabled (lives with in [facility]) ED ROS GENERAL - Review of Systems Review Of Systems: See Below Constitutional: Reports: Weakness, Fatigue, Decreased Appetite HEENT: Reports: No Symptoms Respiratory: Reports: Shortness of Breath Cardiovascular: Reports: Dyspnea on Exertion Endocrine: Reports: No Symptoms GI/Abdominal: Reports: Abdominal Pain, Constipation, Nausea, Vomiting : Reports: No Symptoms Musculoskeletal: Reports: No Symptoms Skin: Reports: No Symptoms Neurological: Reports: Weakness Psychiatric: Reports: No Symptoms Hematologic/Lymphatic: Reports: No Symptoms Immunologic: Reports: No Symptoms ED EXAM, GENERAL - Physical Exam Exam: See Below Exam Limited By: No Limitations General Appearance: Alert, WD/WN, No Apparent Distress (appears pale and very fatigue. ), Obese Eye Exam: Bilateral Eye: Normal Inspection Ears: Normal External Exam, Hearing Grossly Normal Nose: Normal Inspection Throat/Mouth: No Airway Compromise Head: Atraumatic, Normocephalic Neck: Normal Inspection, Supple, Non-Tender, Full Range of Motion Respiratory/Chest: No Respiratory Distress, Lungs Clear, Normal Breath Sounds, No Accessory Muscle Use, Chest Non-Tender GI/Abdominal: Distended, Tender (generalized.) Rectal (Female) Exam: Normal Rectal Tone, Other (fecal leakage noted. digital exam soft stool noted in rectum. stool light brown soft .) Back Exam: Normal Inspection Extremities: Pedal Edema (1+ bilateral) Neurological: Alert, Oriented, Normal Cognition Psychiatric: Normal Affect Skin Exam: Warm, Dry, Intact, Normal Color, No Rash Lymphatic: No Adenopathy Course - Vital Signs Last Recorded V/S: Last Vital Signs Temp 37.2 C 08/11/18 20:52 Pulse 108 H 08/11/18 22:42 Resp 24 H 08/11/18 22:42 BP 88/48 L 08/11/18 22:42 Pulse Ox 93 L 08/11/18 22:42 - Orders/Labs/Meds Orders: Active Orders 24 hr Category Date Time Status Cardiac Monitoring [RC] .As Directed Care 08/11/18 19:35 Active EKG Documentation Completion [RC] ASDIRECTED Care 08/11/18 20:54 Active Urinary Catheter Assessment [RC] ASDIRECTED Care 08/11/18 22:29 Ordered Chest Abdomen Pelvis wo Cont [CT] Stat Exams 08/11/18 19:36 Taken UA W/MICROSCOPIC [URIN] Urgent Lab 08/11/18 19:36 Ordered Sodium Chloride 0.9% [Saline Flush] Med 08/11/18 19:34 Active 10 ml FLUSH ASDIRECTED PRN Saline Lock Insert [OM.PC] Routine Oth 08/11/18 19:34 Ordered Code Status [Resuscitation Status] Stat Resus Stat 08/11/18 22:46 Ordered EKG 12 Lead [EK] Urgent Ther 08/11/18 20:54 Ordered Medication Orders Sodium Chloride (Saline Flush) 10 ml FLUSH ASDIRECTED PRN PRN Reason: Keep Vein Open Last Admin: 08/11/18 20:00 Dose: 10 ml Labs: Laboratory Tests 08/11/18 08/11/18 08/11/18 Range/Units 20:02 20:02 20:02 WBC 11.1 H (4.5-11.0) K/uL RBC 3.47 (3.30-5.50) M/uL Hgb 10.2 L D (12.0-15.0) g/dL Hct 33.0 L (36.0-48.0) % MCV 95 (80-98) fL MCH 29 (27-31) pg MCHC 31 L (32-36) % Plt Count 170 (150-400) K/uL Add Manual Diff Yes Neutrophils % (Manual) 78 H (36-66) % Band Neutrophils % 3 L (5-11) % Lymphocytes % (Manual) 11 L (24-44) % Monocytes % (Manual) 7 H (2-6) % Eosinophils % (Manual) 1 L (2-4) % Nucleated RBCs PT 72.3 H (9.5-12.0) sec INR 7.36 H* D (0.80-1.20) Sodium 139 L (140-148) mmol/L Potassium 4.4 (3.6-5.2) mmol/L Chloride 100 (100-108) mmol/L Carbon Dioxide 27 (21-32) mmol/L Anion Gap 16.4 H (5.0-14.0) mmol/L BUN 33 H D (7-18) mg/dL Creatinine 1.8 H D (0.6-1.0) mg/dL Est Cr Clr Drug Dosing 30.10 mL/min Estimated GFR (MDRD) 28 L (>60) Glucose 152 H (74-106) mg/dL Lactic Acid (0.4-2.0) mmol/L Calcium 9.5 (8.5-10.1) mg/dL Magnesium (1.8-2.4) mg/dL Total Bilirubin 0.5 (0.2-1.0) mg/dL AST 43 H (15-37) U/L ALT 26 (12-78) U/L Alkaline Phosphatase 142 H (46-116) U/L Troponin I (0.000-0.056) ng/mL NT-Pro-B Natriuret Pep (5-125) pg/mL Total Protein 6.7 (6.4-8.2) g/dL Albumin 1.5 L (3.4-5.0) g/dL Globulin 5.2 H (2.3-3.5) g/dL Albumin/Globulin Ratio 0.3 L (1.2-2.2) Lipase (73-393) U/L 08/11/18 08/11/18 Range/Units 20:02 20:02 WBC (4.5-11.0) K/uL RBC (3.30-5.50) M/uL Hgb (12.0-15.0) g/dL Hct (36.0-48.0) % MCV (80-98) fL MCH (27-31) pg MCHC (32-36) % Plt Count (150-400) K/uL Add Manual Diff Neutrophils % (Manual) (36-66) % Band Neutrophils % (5-11) % Lymphocytes % (Manual) (24-44) % Monocytes % (Manual) (2-6) % Eosinophils % (Manual) (2-4) % Nucleated RBCs PT (9.5-12.0) sec INR (0.80-1.20) Sodium (140-148) mmol/L Potassium (3.6-5.2) mmol/L Chloride (100-108) mmol/L Carbon Dioxide (21-32) mmol/L Anion Gap (5.0-14.0) mmol/L BUN (7-18) mg/dL Creatinine (0.6-1.0) mg/dL Est Cr Clr Drug Dosing mL/min Estimated GFR (MDRD) (>60) Glucose (74-106) mg/dL Lactic Acid 4.8 H (0.4-2.0) mmol/L Calcium (8.5-10.1) mg/dL Magnesium 2.0 (1.8-2.4) mg/dL Total Bilirubin (0.2-1.0) mg/dL AST (15-37) U/L ALT (12-78) U/L Alkaline Phosphatase (46-116) U/L Troponin I 0.074 H* (0.000-0.056) ng/mL NT-Pro-B Natriuret Pep 8281 H (5-125) pg/mL Total Protein (6.4-8.2) g/dL Albumin (3.4-5.0) g/dL Globulin (2.3-3.5) g/dL Albumin/Globulin Ratio (1.2-2.2) Lipase 113 (73-393) U/L Meds: Medications Generic Name Dose Route Start Last Admin Trade Name Freq PRN Reason Stop Dose Admin Sodium Chloride 10 ml 08/11/18 19:34 08/11/18 20:00 Saline Flush FLUSH 10 ml ASDIRECTED PRN Administration Keep Vein Open Discontinued Medications Generic Name Dose Route Start Last Admin Trade Name Freq PRN Reason Stop Dose Admin Furosemide 40 mg 08/11/18 22:26 Lasix IVPUSH 08/11/18 22:27 NOW ONE Hydromorphone HCl 0.5 mg 08/11/18 22:44 Dilaudid IVPUSH 08/11/18 22:45 ONETIME ONE Phytonadione 5 mg/ Sodium 50.5 mls @ 100 mls/hr 08/11/18 20:31 08/11/18 20:45 Chloride IV 08/11/18 21:01 100 mls/hr NOW ONE Administration Ondansetron HCl 4 mg 08/11/18 19:34 08/11/18 20:00 Zofran IVPUSH 08/11/18 19:35 4 mg ONETIME ONE Administration - Re-Assessments/Exams Free Text/Narrative Re-Assessment/Exam: 08/11/18 20:01 discussed with and Mrs. Gordon, will do lab and imaging to rule any acute finding. medicate nausea with Zofran 4mg IV Mrs. Gordon is not in any pain at this time, declines pain medications. LABS: CBC,CMP, PRO-BNP, LACTIC ACID, LIPASE, TROPONIN, URINE W/MICRO, INR PT IMAGING: CHEST ABDOMIN PELVIS CT WITHOUT CONTRAST MEDICATION: ZOFRAN 4MG IV NOW. Telemetry and Mrs. Gorodn agree with plan of care. 08/11/18 20:32 Lab: INR 7.36, order Vitamin K 5mg IV now. 08/11/18 20:34 Troponin 0.074 08/11/18 20:49 discussed lab results with and Mrs. Gordon, will treat high INR with Vitamin K, awaiting results of CT chest, abdomen, pelvis. 08/11/18 contacted [facility] for transfer. Dr. Fercho Isidro, Hospitalist accepting -order Lasix 40 mg IV push now -quick cath for urine collection., patient refused quick cath, request capone cath for transfer, [facility] can remove when she arrives at the hospital -Code status: Full Code -ACLS transport -Telemetry -call Doctor during transport if blood pressure decreases Systolic less than 90. -will be Overflow to 4th floor Critical Care Unit Pain control -requesting pain medication for transport. has had Dilaudid in the past without problems -order Dilaudid 0.5 mg IV once Discussed plan of care with and Mrs. Gordon, agree with plan of care Departure - Departure Time of Disposition: 23:01 Disposition: DC/Tfer to Acute Hospital 02 Condition: Poor Clinical Impression: CHF (congestive heart failure), Shortness of breath, Elevated INR ( international normalized ratio) due to prior anticoagulant medication ingestion , Cirrhosis of liver with ascites, Weakness generalized, Elevated troponin I measurement, Ovarian cancer, Morbid obesity - Discharge Information *PRESCRIPTION DRUG MONITORING PROGRAM REVIEWED*: No *COPY OF PRESCRIPTION DRUG MONITORING REPORT IN PATIENT ISABEL: No Referrals: Jerman Rivas MD [Primary Care Provider] - Forms: ED Department Discharge, Interfacility Transfer [facility] Care Plan Goals: Mrs. Sabiha Gordon transferred to [facility] for further care and treatment. and Mrs. Gordon agree with plan of care and transfer - Problem List & Annotations (1) Shortness of breath SNOMED Code(s): 506988879 Code(s): R06.02 - SHORTNESS OF BREATH Status: Acute Current Visit: Yes (2) CHF (congestive heart failure) SNOMED Code(s): 82797836 Code(s): I50.9 - HEART FAILURE, UNSPECIFIED Status: Acute Priority: High Current Visit: Yes Qualifiers: Heart failure chronicity: acute on chronic (3) Cirrhosis of liver with ascites SNOMED Code(s): 15119099 Code(s): K74.60 - UNSPECIFIED CIRRHOSIS OF LIVER; R18.8 - OTHER ASCITES Status: Acute Priority: High Current Visit: Yes (4) Elevated INR (international normalized ratio) due to prior anticoagulant medication ingestion SNOMED Code(s): 706625934, 829452612 Code(s): R79.1 - ABNORMAL COAGULATION PROFILE Status: Acute Priority: High Current Visit: Yes Annotation/Comment:: INR 7.36, last Coumadin 7 days ago (5) Elevated troponin I measurement SNOMED Code(s): 326951934 Code(s): R74.8 - ABNORMAL LEVELS OF OTHER SERUM ENZYMES Status: Acute Priority: High Current Visit: Yes (6) Ovarian cancer Status: Acute Priority: High Current Visit: Yes Qualifiers: Laterality: unspecified laterality Qualified Code(s): C56.9 - Malignant neoplasm of unspecified ovary (7) Weakness generalized SNOMED Code(s): 06786034 Code(s): R53.1 - WEAKNESS Status: Acute Priority: High Current Visit: Yes (8) Morbid obesity SNOMED Code(s): 438830982 Code(s): E66.01 - MORBID (SEVERE) OBESITY DUE TO EXCESS CALORIES Status: Chronic Priority: High Current Visit: Yes - Problem List Review Problem List Initiated/Reviewed/Updated: Yes - My Orders Last 24 Hours: My Active Orders 08/11/18 19:34 Sodium Chloride 0.9% [Saline Flush] 10 ml FLUSH ASDIRECTED PRN Saline Lock Insert [OM.PC] Routine 08/11/18 19:35 Cardiac Monitoring [RC] .As Directed 08/11/18 19:36 Chest Abdomen Pelvis wo Cont [CT] Stat UA W/MICROSCOPIC [URIN] Urgent 08/11/18 20:54 EKG Documentation Completion [RC] ASDIRECTED EKG 12 Lead [EK] Urgent 08/11/18 22:29 Urinary Catheter Assessment [RC] ASDIRECTED 08/11/18 22:46 Code Status [Resuscitation Status] Stat - Assessment/Plan Last 24 Hours: My Active Orders 08/11/18 19:34 Sodium Chloride 0.9% [Saline Flush] 10 ml FLUSH ASDIRECTED PRN Saline Lock Insert [OM.PC] Routine 08/11/18 19:35 Cardiac Monitoring [RC] .As Directed 08/11/18 19:36 Chest Abdomen Pelvis wo Cont [CT] Stat UA W/MICROSCOPIC [URIN] Urgent 08/11/18 20:54 EKG Documentation Completion [RC] ASDIRECTED EKG 12 Lead [EK] Urgent 08/11/18 22:29 Urinary Catheter Assessment [RC] ASDIRECTED 08/11/18 22:46 Code Status [Resuscitation Status] Stat Plan: Mrs. Sabiha Gordon transferred to [facility] for further care and treatment. and Mrs. Gordon agree with plan of care and transfer
[2018-08-11] MEDS ORDERED: Phytonadione 5 MG in Sodium Chloride 0.9% 50 ML IV ONE (20:31)
[2018-08-11] MEDS ORDERED: Furosemide 40 MG/4 ML VIAL IVPUSH ONE (22:26)
[2018-08-11] MEDS ORDERED: HYDROmorphone 0.5 MG/0.5 ML Syringe IVPUSH ONE (22:44)
[2018-08-11] MEDS ORDERED: Ondansetron 4 MG/2 ML SDV ONE (23:08)
[2018-08-12 00:01] VITALS: BP 104/45
== END 2018-08-12 00:19 ==
LOC: JP.ED 18:43
DX: I12.9 Hypertensive chronic kidney disease with stage 1 through stage 4 chronic kidney disease, or unspecified chronic kidney disease (principal); I50.9 Heart failure, unspecified; N18.3 Chronic kidney disease, stage 3 (moderate); F32.9 Major depressive disorder, single episode, unspecified; R79.1 Abnormal coagulation profile; K74.60 Unspecified cirrhosis of liver; R79.89 Other specified abnormal findings of blood chemistry; R53.1 Weakness; C56.9 Malignant neoplasm of unspecified ovary; F41.9 Anxiety disorder, unspecified; R18.8 Other ascites; E66.01 Morbid (severe) obesity due to excess calories; Z88.8 Allergy status to other drugs, medicaments and biological substances; Z79.01 Long term (current) use of anticoagulants; Z79.899 Other long term (current) drug therapy; Z68.41 Body mass index [BMI] 40.0-44.9, adult
CPT/HCPCS: 36415; 51702; 71250; 74176; 80053; 81001; 83605; 83690; 83735; 83880; 84484; 85025; 85610; 93005; 96365; 96375; 96376; 99285; C1751; J1170; J1940; J2405; J3430; J7050